=== PATIENT | male | born 1965 | race Caucasian/White ===

== ENCOUNTER 2020-03-21 07:51 | Inpatient (IN) | payer BC, SELFPAY ==
[2020-03-21] VITALS (11 sets, daily range): BP systolic 120–151; BP diastolic 60–80; PULSE 69–87; RESP 16–30; TEMP 36–38.7; O2SAT 90–96
--- NOTE | ~2020-03-21 | XR_ITS ---
EXAMINATION: XR chest 1V portable EXAM DATE: 03/21/2020 09:10 INDICATION: Shortness of breath, fever, anterior. History of diabetes. TECHNIQUE: Portable AP frontal chest x-ray was obtained. Comparison is made to prior examination from 09/15/2010. FINDINGS: Patchy bilateral ill-defined acute airspace disease, could be infection or edema. The cardi omediastinal silhouette is prominent but magnified on this AP technique. Cardiac silhouette is stable in size compared to prior exam. There is no pneumothorax suspected. There are no pleural effusions. There are no osseous abnormalities identified. IMPRESSION: Patchy bilateral ill-defined acute airspace disease, infection or edema. Recommend consid ering/excluding COVID-19. Reviewed, dictated and finalized at location A. [facility] IMPRESSION: Patchy bilateral ill-defined acute airspace disease, infection or e sandra. Recommend considering/excluding COVID-19.
--- NOTE | 2020-03-21 08:25 | ECG_ITS ---
Measurements Intervals [place] Rate: 76 P: 18 ME: 127 QRS: -1 QRSD: 141 T: -6 QT: 431 QTc: 485 Interpretive Statements SINUS RHYTHM RIGHT BUNDLE BRANCH BLOCK BASELINE ARTIFACT- I, III, AVR, AVL, AVF ABNORMAL ECG Electronically Signed On 03-21-2020 9:06:17 [employer] FINISH[employer] by Bal Luong D.O.
--- NOTE | 2020-03-21 08:31 | ED.SOB ---
HPI - SOB/Dyspnea General Chief Complaint: Shortness of Breath/Dyspnea Stated Complaint: sob/covid pending Time Seen by Provider: 03/21/20 08:06 Source: patient Mode of arrival: ambulatory Limitations: no limitations History of Present Illness HPI Narrative: This patient is a 54 year old male with history of hypertension and Diabetes mellitus who presents for evaluation of shortness of breath. He states 1 week ago he was told that someone he works with has covid 19. He developed concerning symptoms of Covid 19 on Thanksgiving. He reports diarrhea, fatigue, night sweats, chills, body aches and a cough. Over the past 2 days he has been having shortness of breath with coughing and exertion. He had a fever today. He denies chest pain. Related Data Home Medications Medication Instructions Recorded Confirmed alprazolam 0.25 mg PO PRN MDD 3 TABS DAILY 04/22/19 03/21/20 buspirone 30 mg PO BID 04/22/19 03/21/20 escitalopram oxalate 10 mg tablet 15 mg PO DAILY 08/12/19 03/21/20 trazodone 50 mg tablet 150 mg PO HS tablet 08/12/19 03/21/20 Allergies Allergy/AdvReac Type Severity Reaction Status Date / Time exenatide Allergy Unknown Hives Verified 03/21/20 08:08 Review of Systems Review of Systems: All systems reviewed & are unremarkable except as noted in HPI and below Constitutional: Constitutional: Reports chills, Reports fatigue and Reports fever(s) ENT: Reports nasal congestion Cardiovascular: Cardiovascular: Denies chest pain Respiratory: Respiratory: Reports cough and Reports dyspnea Gastrointestinal: Gastrointestinal: Denies abdominal pain, Reports diarrhea and Reports nausea PMFSH Past Medical History Medical History (Updated 03/21/20 @ 19:02 by Cassy Bustamante MD) Adenomatous colon polyp Anxiety Depression Diverticulitis large intestine (~03/2019) Dyslipidemia Gastroesophageal reflux disease Hypertension Obstructive sleep apnea on CPAP Type 2 diabetes mellitus Surgical History Surgical History History of arthroscopy of right knee History of Frank[place] fundoplication Family History Family History Mother Diabetes mellitus Family history of mental disorder Depression Father Family history of alcoholism Family history of colonic diverticulitis Social History Social History (Updated 03/21/20 @ 16:45 by Lyubov Cedillo PA-C) Social History: Surrogate decision maker: Alyssa Bass. Code status: Full code. Smoking packs per day: 0.5 Smoking cigarettes per day: 10.0 Years smoked: 20 Smoking pack-years: 10.00 Smoking status: Former smoker Second hand tobacco smoke exposure: No Smoking end date: 04/21/12 Alcohol intake: never Substance use: never Substance use type: does not use Additional living arrangements comments: Lives in [place]. Additional occupation/education comments: Works at [employer]. Gender identity (if verbalized by the patient): Male Sexual Orientation (if Verbalized by the Patient): Straight or Heterosexual Spiritual care concerns: No Exam Const: General: alert Orientation/consciousness: patient oriented x3 HENMT: Head: normocephalic and atraumatic Face and sinus: face symmetric Mouth: Yes Normal oral and palatal mucosa present, Yes lip normal, Yes oropharynx normal and Yes moist mucous membranes Throat: posterior oropharynx normal, tonsils normal and uvula midline Eyes: Pupils: Equal, round and reactive pupils present EOM: EOMs intact bilaterally Neck: Neck: normal visual inspection Chest: Chest palpation & inspection: normal inspection of the chest Resp: Effort & Inspection: normal respiratory effort, no retractions and not tachypneic Auscultation: crackles Cardio: Rate: regular rate Rhythm: regular rhythm Heart sounds: no murmurs GI: GI Palp: Yes Soft to palpation, No Tende
[2020-03-21 08:50] LABS: Basophils Percent Auto 0.2 % (0.2-1.2); Hemoglobin 15.1 g/dL (14.0-18.0); Lymphocytes Absolute Auto 0.92 K/mm3 (0.9-3.2); Lymphocytes Percent Auto 9.3 % (18.3-44.2); Mean Corpuscular HGB Conc 34.3 g/dl (32-36); Mean Corpuscular Hemoglobin 29.8 pg (26-34); Mean Platelet Volume 9.8 fl (7.4-10.4); Monocytes Absolute Auto 0.5 K/mm3 (0.1-0.6); Monocytes Percent Auto 5.4 % (2.6-8.5); Neutrophils Absolute Auto 8.3 K/mm3 (1.3-6.7); Neutrophils Percent Auto 84.1 % (45.5-73.1); Platelet Count Result 307 k/mm3 (150-375); Red Blood Count 5.06 M/mm3 (4.6-6.20); Red Cell Distribution Width 12.8 % (11.5-14.5); White Blood Count 9.9 K/mm3 (4.5-10.0)
[2020-03-21 08:59] LABS: Prothrombin Time 13.3 Seconds (11.1-14.7)
[2020-03-21 09:00] LABS: Partial Thromboplastin Time 30.7 SECONDS (22.3-36.8)
[2020-03-21 09:02] LABS: D Dimer 1.17 ug/mL (<0.48); Lactate Dehydrogenase 634 U/L (313-618)
[2020-03-21 09:08] LABS: Alanine Aminotransferase 25 U/L (4-50); Albumin Level 4.1 g/dL (3.5-5.1); Alkaline Phosphatase 61 U/L (38-126); Anion Gap 14 mmol/L (8-16); Aspartate Amino Transferase 42 U/L (17-59); Bilirubin,Total 0.6 mg/dL (0.2-1.3); Blood Urea Nitrogen 22 mg/dL (9-20); Calcium 9.1 mg/dL (8.4-10.2); Carbon Dioxide 20 mmol/L (22-30); Chloride 99 mmol/L (98-107); Estimated CRCL calculation 86 ml/min; Estimated Glomerular Filt Rate > 60; Glucose 224 mg/dL (75-110); Sodium 133 mmol/L (137-145)
[2020-03-21 09:15] LABS: Troponin I 0.013 ng/mL (0.000-0.034)
[2020-03-21 09:18] LABS: CRP 23.4 mg/dL (<1.0)
--- NOTE | 2020-03-21 09:55 | PC.NURSE ---
Preparing to admit for pneumonia. Note pt's spo2 has dropped to 88-91% while in the ED.
--- NOTE | 2020-03-21 13:00 | PM.IMHP ---
H&P: HPI History of Present Illness Date/Time: 03/21/20 13:00 Chief complaint: Shortness of breath. Narrative: Elizabeth Bass is a is 54-year-old male with type 2 diabetes mellitus, hypertension, hyperlipidemia, and obstructive sleep apnea who presented to the emergency department earlier today for evaluation of shortness of breath after leaving the [facility] drive through testing poor COVID-19. About a week ago he was told that somebody he works with was positive for COVID-19 and he developed symptoms concerning for the same on gi including fever, chills, night sweats, body aches, fatigue, nonproductive cough, and diarrhea (which has improved). Initially he had diminished sense of taste and smell however that has improved somewhat. Over the past 2 days he has developed shortness of breath with exertion and seemed to be much worse today thus he came in for evaluation. He denies headache, neck ache, sore throat, chest pain, pleuritic pain, vomiting, and dysuria. Review of Systems Review of Systems: Narrative: Twelve systems were reviewed with pertinent positives and negatives as per HPI. He believes his diabetes is well controlled with average random glucose of around 140. He denies blurry vision, polydipsia, and polyuria. No nephropathy, retinopathy, or neuropathy. Except as documented, all other systems were reviewed and are negative. [facility] Past Medical History Medical History Adenomatous colon polyp Anxiety Depression Diverticulitis large intestine (~03/2019) Dyslipidemia Gastroesophageal reflux disease Hypertension Obstructive sleep apnea on CPAP Type 2 diabetes mellitus Surgical History Surgical History History of arthroscopy of right knee History of Frank[place] fundoplication Family History Family History Mother Diabetes mellitus Family history of mental disorder Depression Father Family history of alcoholism Family history of colonic diverticulitis Social History Social History (Updated 03/21/20 @ 16:45 by Lyubov Cedillo PA-C) Social History: Surrogate decision maker: Alyssa Kali. Code status: Full code. Smoking packs per day: 0.5 Smoking cigarettes per day: 10.0 Years smoked: 20 Smoking pack-years: 10.00 Smoking status: Former smoker Second hand tobacco smoke exposure: No Smoking end date: 04/21/12 Alcohol intake: never Substance use: never Substance use type: does not use Additional living arrangements comments: Lives in [place]. Additional occupation/education comments: Works at [employer] Gender identity (if verbalized by the patient): Male Sexual Orientation (if Verbalized by the Patient): Straight or Heterosexual Spiritual care concerns: No Meds Home Medications and Allergies Home Medications Medication Instructions Recorded Confirmed Type alprazolam 0.25 mg PO PRN MDD 3 TABS DAILY 04/22/19 03/21/20 History buspirone 30 mg PO BID 04/22/19 03/21/20 History atorvastatin 20 mg tablet 20 mg PO DAILY #90 tablet 06/07/19 03/21/20 Rx canagliflozin 300 mg tablet 300 mg PO DAILY #90 tablet 06/07/19 03/21/20 Rx lisinopril 10 mg tablet 10 mg PO DAILY #90 tablet 06/07/19 03/21/20 Rx escitalopram oxalate 10 mg tablet 15 mg PO DAILY 08/12/19 03/21/20 History trazodone 50 mg tablet 150 mg PO HS tablet 08/12/19 03/21/20 History pen needle, diabetic 32 gauge x #100 each 08/24/19 03/21/20 Rx insulin glargine 100 unit/mL (3 See Rx Instructions .ROUTE 03/20/20 03/21/20 Rx mL) subcutaneous pen .COMPLEX #15 ml metformin 500 mg tablet See Rx Instructions .ROUTE 03/20/20 03/21/20 Rx .COMPLEX #360 tablet Allergies Allergy/AdvReac Type Severity Reaction Status Date / Time exenatide Allergy Unknown Hives Verified 03/21/20 08:08 Vital Signs Vital Signs
[2020-03-21] MEDS: ALBUTEROL SULFATE (*SP) AEROSOL 1 PUFF 6 PUFF INHALATION (16:01)
[2020-03-21] MEDS: DEXAMETHASONE 2 MG TABLET 6 MG PO (16:39)
[2020-03-21] MEDS: SODIUM CHLORIDE 0.9% IV 1,000 ML 100 ML IV CONT (16:51)
[2020-03-21 17:45] LABS: Glucose Point of Care 148 (65-105)
[2020-03-21 19:16] LABS: SARS-CoV-2 RNA PCR Positive
[2020-03-21 23:36] LABS: Glucose Point of Care 169 (65-105)
[2020-03-22] MEDS: traZODone HCL 50 MG TABLET 150 MG PO (04:14)
[2020-03-22] MEDS: ALPRAZolam (*CRX) 0.25 MG TABLET PO (04:14)
[2020-03-22 04:17] VITALS: BP 116/59; PULSE 60; RESP 20; TEMP 35.6; O2SAT 94
[2020-03-22 08:00] VITALS: PULSE 74; RESP 18; O2SAT 92
[2020-03-22] MEDS: ASCORBIC ACID 500 MG TABLET PO (08:09)
[2020-03-22] MEDS: ZINC SULFATE 220 MG CAPSULE PO (08:10)
[2020-03-22] MEDS: busPIRone HCL 10 MG TABLET 30 MG PO (08:10)
[2020-03-22] MEDS: CHOLECALCIFEROL 400 UNITS TABLET (VIT D) PO (08:10)
[2020-03-22] MEDS: ATORVASTATIN 20 MG TABLET PO (08:10)
[2020-03-22] MEDS: lisinopriL 10 MG TABLET PO (08:11)
[2020-03-22] MEDS: DEXAMETHASONE 2 MG TABLET 6 MG PO (08:11)
[2020-03-22] MEDS: ENOXAPARIN 40 MG/0.4 ML SYRINGE SUB-Q (08:11)
[2020-03-22] MEDS: CANAGLIFLOZIN 100 MG TABLET 300 MG PO (08:12)
[2020-03-22 08:17] LABS: Glucose Point of Care 142 (65-105)
[2020-03-22] MEDS: ESCITALOPRAM OXALATE 10 MG TABLET 30 MG PO (08:23)
[2020-03-22 08:53] VITALS: BP 128/70; PULSE 74; RESP 18; TEMP 36.2; O2SAT 92
[2020-03-22] MEDS: guaiFENesin 12 HR 600 MG TABCR 1200 MG PO (10:41)
--- NOTE | 2020-03-22 10:46 | PCRCNOTE ---
Window of time for administration has passed. See next scheduled administration.
[2020-03-22 10:50] LABS: Basophils Percent Auto 0.4 % (0.2-1.2); Hematocrit 45.6 % (42.0-52.0); Hemoglobin 15.2 g/dL (14.0-18.0); Immature Granulocyte Absolute 0.13 K/mm3 (0.00-0.031); Immature Granulocyte Percent A 1.6 % (0-0.5); Lymphocytes Absolute Auto 1.08 K/mm3 (0.9-3.2); Mean Corpuscular HGB Conc 33.3 g/dl (32-36); Mean Corpuscular Hemoglobin 29.3 pg (26-34); Mean Corpuscular Volume 87.9 fl (80-100); Mean Platelet Volume 9.4 fl (7.4-10.4); Monocytes Absolute Auto 0.7 K/mm3 (0.1-0.6); Monocytes Percent Auto 8.8 % (2.6-8.5); Neutrophils Absolute Auto 6.3 K/mm3 (1.3-6.7); Neutrophils Percent Auto 76.2 % (45.5-73.1); Platelet Count Result 365 k/mm3 (150-375); Red Blood Count 5.19 M/mm3 (4.6-6.20); Red Cell Distribution Width 12.7 % (11.5-14.5); White Blood Count 8.3 K/mm3 (4.5-10.0)
[2020-03-22 11:08] LABS: Atypical Lymphocytes Present; Platelet Estimate Adequate (Adequate)
[2020-03-22 12:02] VITALS: BMI 32.8
[2020-03-22 12:05] LABS: Glucose Point of Care 152 (65-105)
[2020-03-22 12:07] LABS: Alanine Aminotransferase 23 U/L (4-50); Albumin Level 3.9 g/dL (3.5-5.1); Alkaline Phosphatase 57 U/L (38-126); Anion Gap 15 mmol/L (8-16); Aspartate Amino Transferase 35 U/L (17-59); Bilirubin,Total 0.6 mg/dL (0.2-1.3); Blood Urea Nitrogen 26 mg/dL (9-20); CRP 14.2 mg/dL (<1.0); Calcium 9.1 mg/dL (8.4-10.2); Carbon Dioxide 22 mmol/L (22-30); Chloride 102 mmol/L (98-107); Estimated CRCL calculation 95 ml/min; Estimated Glomerular Filt Rate > 60; Glucose 164 mg/dL (75-110); Lactate Dehydrogenase 676 U/L (313-618); Magnesium 2.8 mg/dL (1.6-2.3); Potassium 3.9 mmol/L (3.4-5.0); Sodium 139 mmol/L (137-145)
[2020-03-22 12:29] LABS: Hemoglobin A1C 7.7 % (<5.7)
[2020-03-22] MEDS: ALBUTEROL SULFATE (*SP) AEROSOL 1 PUFF 6 PUFF INHALATION (14:34)
--- NOTE | 2020-03-22 15:04 | PM.DS ---
DS: Admitting Diagnosis Admitting Diagnosis Admitting Diagnosis: Shortness of breath. DS: Discharge Diagnosis Discharge Diagnosis (1) Pneumonia due to COVID-19 virus: Code(s): U07.1 - COVID-19; J12.89 - Other viral pneumonia Status: Acute Assessment and Plan: Patient feeling better today. Discussed supportive care at home; patient okay with plan for discharge. Not requiring O2 today; intermittently hypoxic yesterday. Patient does not meet criteria for IV remdesivir or decadron. Discharge today home F/u with PCP in 1 week Discussed pulse oximeter Continue supportive care with Tylenol, Mucinex, and Albuterol Discussed returning to the ED if symptoms worse or persistently hypoxic at home Continue to isolate at home (2) Hypoxia: Code(s): R09.02 - Hypoxemia Status: Acute Assessment and Plan: Intermittently hypoxic yesterday, satting low-mid 90s today. Not requiring oxygen. Likely due to COVID pneumonia. Discussed supportive care as above. (3) Type 2 diabetes mellitus: Code(s): E11.9 - Type 2 diabetes mellitus without complications Status: Acute Assessment and Plan: A1c 7.7 Accuchecks ACHS, hypoglycemia protocol, correctional insulin, diabetic diet during stay Will resume home medications at discharge (4) Hypertension: Code(s): I10 - Essential (primary) hypertension Status: Acute Assessment and Plan: BP 120s sys today Continue home medications (5) Dyslipidemia: Code(s): E78.5 - Hyperlipidemia, unspecified Status: Acute Assessment and Plan: continue home medications (6) Anxiety: Code(s): F41.9 - Anxiety disorder, unspecified Status: Acute Assessment and Plan: Continue home medications DS: Summary Hospital Course Reason for hospitalization: COVID pneumonia Hospital Course: Date of arrival: 03/21/20 Date of discharge: 03/22/20 Patient is a 54-year-old male with type 2 diabetes mellitus, hypertension, hyperlipidemia, and obstructive sleep apnea who presented to the emergency department earlier today for evaluation of shortness of breath after leaving the [facility] drive through testing poor COVID-19. While in the ED, patient was found to have evidence of pneumonia on CXR and was started on empiric azithromycin and rocephin until COVID testing would return. One dose of dexamethasone was given in the ER. He had experience intermittent hypoxia while in the ED thus patient admitted under this setting. Please see H&P for further details. Patient was admitted to the hospitalist service for further management/treatment. COVID testing came back positive and was given another dose of dexamethasone after admission (2 doses total during stay). After admission, patient remained on RA and thus did not meet criteria for Remdesivir therapy. Patient was feeling better the following day from admission. Given that the patient did not meet criteria for antiviral, plan was for supportive care at home. He was to follow up in 1 week. An albuterol inhaler was prescribed. Pulse oximeter was recommended at home for occasional spot checks. Patient agreeable and comfortable with plan for discharge. Patient hemodynamically stable and in improved condition for discharge on 03/22 Status at Discharge Overall status at discharge: patient is progressing back to baseline Time Spent with Patient Time attestation: Total time spent providing and/or coordinating discharge services: Time spent: Greater than 30 minutes Exam Narrative: Exam Narrative: Patient lying supine in bed with head rasied Const: General: comfortable, no acute distress, well developed, alert, awake, Physically ac
== END 2020-03-22 16:38 | disposition home or self-care (01) | DRG 177 ==
LOC: ANHED 08:11 → ANH3MEDSUR 19:02
PROVIDERS: Physician Assistant; Admitting Provider Family Medicine; Emergency Provider General Practice; PCP Family Medicine; Visit Provider Physician Assistant
DX: U07.1 COVID-19 (principal); J12.89 Other viral pneumonia; R09.02 Hypoxemia; E11.9 Type 2 diabetes mellitus without complications; I10 Essential (primary) hypertension; E78.5 Hyperlipidemia, unspecified; G47.33 Obstructive sleep apnea (adult) (pediatric); F41.8 Other specified anxiety disorders; K21.9 Gastro-esophageal reflux disease without esophagitis; Z87.891 Personal history of nicotine dependence
CPT/HCPCS: 36415; 71045; 80053; 82728; 83036; 83605; 83615; 83735; 84484; 85025; 85380; 85610; 85730; 86140; 87040; 87635; 87804; 93005; 94640; 96374; 99285; A9270; C9803; J0131; J0456; J0696; J1650; J7030; J8540; U0003